=== PATIENT | male | born 1990 | race Caucasian/White ===

== ENCOUNTER 2021-07-31 08:40 | Outpatient (CLI) | payer OTHER | END 2021-07-31 08:41 | disposition critical access hospital (66) | LOC: EMS 08:40 | DX: R55 Syncope and collapse (principal); R42 Dizziness and giddiness; R53.1 Weakness | CPT/HCPCS: A0425; A0429 ==

== ENCOUNTER 2021-07-31 09:08 | Emergency (ER) | payer OTHER ==
--- NOTE | 2021-07-31 09:20 | ED Physician Documentation ---
PD HPI SYNCOPE - Stated complaint Stated Complaint: SYNCOPE - History obtained from History obtained from: Patient, EMS (they report normal HR/ECG, BP and FSBS enroute.) - History of Present Illness Witnessed: Witnessed Timing - onset: Today Duration: Seconds Preceding symptoms: Light headed. No: Headache, Chest pain, Abdominal pain, Nausea / vomiting Associated symptoms: No: Headache, Chest pain, Dyspnea Contributing factors: Exertion (he was working out hard at the gym with others and was just finishing a set of exercises, and felt lightheaded with feeling of impending syncope. He started to tell coworkers and then he next remembers awakening on floor. Bystanders say he got lightheaded and they caught him from falling.) Injury occurred: None Similar symptoms before: Has not had sx before Recently seen: Not recently seen Review of Systems Constitutional: denies: Fever, Chills Nose: denies: Rhinorrhea / runny nose, Congestion Throat: denies: Sore throat Cardiac: denies: Chest pain / pressure, Palpitations, Pedal edema, Calf pain Respiratory: denies: Dyspnea, Cough, Wheezing Skin: denies: Rash, Lesions Neurologic: reports: Syncope (just this once). denies: Focal weakness, Numbness, Altered mental status, Headache, Head injury Psychiatric: denies: Depressed Endocrine: denies: Weight loss, Weight gain PD PAST MEDICAL HISTORY - Past Medical History Cardiovascular: None Respiratory: None Neuro: None Endocrine/Autoimmune: None GI: None - Present Medications Home Medications: Ambulatory Orders Medication Instructions Recorded Confirmed No Known Home Medications 07/31/21 07/31/21 - Allergies Allergies/Adverse Reactions: Allergies Allergy/AdvReac Type Severity Reaction Status Date / Time No Known Drug Allergies Allergy Verified 07/31/21 09:19 PD ED PE NORMAL - Vitals Vital signs reviewed: Yes - General General: Alert and oriented X 3, No acute distress, Well developed/nourished - HEENT HEENT: Atraumatic, Pharynx benign - Neck Neck: Supple, no meningeal sign, No adenopathy - Cardiac Cardiac: RRR, No murmur - Respiratory Respiratory: Clear bilaterally - Abdomen Abdomen: Soft, Non tender - Derm Derm: Normal color, Warm and dry - Extremities Extremities: No tenderness to palpate, Normal ROM s pain - Neuro Neuro: Alert and oriented X 3, acoustic warfare analyst 2-12 intact, No motor deficit, Normal speech Results - Vitals Vitals: Vital Signs - 24 hr 07/31/21 07/31/21 07/31/21 09:14 09:22 10:38 Temperature 36.2 C L Heart Rate 72 63 61 Respiratory 20 16 18 Rate Blood Pressure 128/61 128/61 131/79 H O2 Saturation 99 100 100 Oxygen O2 Source Room air - EKG (time done) 009:09 Rate: Rate (enter#) (57) Rhythm: NSR Sargent: Normal Intervals: Normal ME QRS: Normal Ischemia: Normal ST segments. No: ST elevation c/w ischemia, ST depression - Labs Labs: Laboratory Tests 07/31/21 07/31/21 09:43 09:43 WBC 11.6 H RBC 4.98 Hgb 14.9 Hct 43.9 MCV 88.2 MCH 29.9 MCHC 33.9 RDW 12.9 Plt Count 205 MPV 10.7 Neut # (Auto) 8.4 H Lymph # (Auto) 2.1 [place] # (Auto) 0.7 Eos # (Auto) 0.3 Baso # (Auto) 0.1 Absolute Nucleated RBC 0.00 Nucleated RBC % 0.0 Sodium 138 Potassium 5.1 H Chloride 102 Carbon Dioxide 27 Anion Gap 9.0 BUN 17 Creatinine 1.2 Estimated GFR (MDRD) 72 L Glucose 105 H Calcium 9.7 Magnesium 2.4 Total Bilirubin 0.7 AST 22 ALT 24 Alkaline Phosphatase 49 Total Creatine Kinase 121 Total Protein 7.8 Albumin 4.8 Globulin 3.0 Albumin/Globulin Ratio 1.6 Lipase 29 PD MEDICAL DECISION MAKING - ED course Complexity details: considered differential (brief syncope with prompt recovery and feeling otherwise okay prior to and after episode. ), d/w patient Departure - Departure Disposition: 01 Home, Self Care Clinical Impression: Syncope Qualifiers: Syncope type: unspecified Qualified Code(s): R55 - Syncope and collapse Condition: Stable Record reviewed to determine appropriate education?: Yes Instructions: ED Syncope Vasovagal Follow-Up: JAJA Trinh [Provider Group] Comments: Your basic blood count and chemistry panel kidney function and blood sugar are good. Your heart rhythm and EKG are normal. Blood pressure and oxygenation are normal at this time. Its unclear the cause of your symptoms. I would not necessarily anticipate recurring episodes. Be sure to stay well-hydrated. Rest for today. Continue usual activity starting tomorrow. Forms: Activity restrictions Discharge Date/Time: 07/31/21 10:39
[2021-07-31 09:47] LABS: BASOPHILS # (AUTO) 0.1 10^3/uL (0.0-0.1); BASOPHILS % (AUTO) 0.6 %; EOSINOPHILS # (AUTO) 0.3 10^3/uL (0.0-0.7); EOSINOPHILS % (AUTO) 2.8 %; HCT - HEMATOCRIT 43.9 % (42.0-52.0); HGB - HEMOGLOBIN 14.9 g/dL (14.0-18.0); LYMPHOCYTES # (AUTO) 2.1 10^3/uL (1.5-3.5); LYMPHOCYTES % (AUTO) 18.4 %; MEAN CORPUSCULAR HEMOGLOBIN 29.9 pg (27.0-31.0); MEAN CORPUSCULAR HGB CONC 33.9 g/dL (32.0-36.0); MEAN CORPUSCULAR VOLUME 88.2 fL (80.0-94.0); MEAN PLATELET VOLUME 10.7 fL (7.4-11.4); MONOCYTES # (AUTO) 0.7 10^3/uL (0.0-1.0); MONOCYTES % (AUTO) 5.9 %; NEUTROPHILS # (AUTO) 8.4 10^3/uL (1.5-6.6); PLT - PLATELET COUNT 205 10^3/uL (130-450); RED BLOOD COUNT 4.98 10^6/uL (4.70-6.10); RED CELL DISTRIBUTION WIDTH 12.9 % (12.0-15.0); WHITE BLOOD COUNT 11.6 x10^3/uL (4.8-10.8)
[2021-07-31 10:18] LABS: ALBUMIN 4.8 g/dL (3.2-5.5); ALBUMIN/GLOBULIN RATIO 1.6 (1.0-2.2); BILIRUBIN,TOTAL 0.7 mg/dL (0.2-1.0); CALCIUM 9.7 mg/dL (8.5-10.3); CREATININE 1.2 mg/dL (0.6-1.2); MAGNESIUM 2.4 mg/dL (1.7-2.8); POTASSIUM 5.1 mmol/L (3.5-5.0); TOTAL PROTEIN 7.8 g/dL (6.7-8.2)
[2021-07-31 10:39] VITALS: BP 131/79
== END 2021-07-31 10:39 | disposition home or self-care (01) ==
LOC: ED 09:08
DX: R55 Syncope and collapse (principal)
CPT/HCPCS: 36415; 80053; 82550; 83690; 83735; 85025; 93005; 99282; 99284